=== PATIENT | male | born 1970 | race Caucasian/White ===

== ENCOUNTER 2019-03-20 17:35 | Emergency (ER) | payer SELFPAY ==
[~2019-03-20] VITALS: Ht 182.9 cm; Wt 22.7 kg
[2019-03-20] MEDS ORDERED: ONDANSETRON PF 4 MG/2 ML VIAL. IV ONE (19:45)
[2019-03-20] MEDS ORDERED: fentaNYL PF VIAL 100 MCG/2 ML VIAL IV ONE (19:45)
[2019-03-20] MEDS ORDERED: IV NORMAL SALINE 1000ML BAG 1,000 ML IV ONE (19:45)
[2019-03-20 19:57] LABS: BASO # 0.1 x10^3/uL (0.0-0.2); BASO % 1 % (0-3); EOS # 0.1 x10^3/uL (0.0-0.7); EOS % 1 % (0-3); HEMOGLOBIN 15.8 g/dL (13.0-17.5); LYMPH # 1.6 x10^3/uL (1.0-4.8); LYMPH % 10 % (24-48); MEAN CORPUSCULAR HEMOGLOBIN 29 pg (25-35); MEAN CORPUSCULAR HGB CONC 34 g/dL (31-37); MEAN CORPUSCULAR VOLUME 84 fL (79-100); MONO # 1.8 x10^3/uL (0.0-1.1); MONO % 12 % (0-9); NEUT # 12.3 x10^3/uL (1.8-7.7); NEUT % 77 % (31-73); PLATELET COUNT 256 x10^3/uL (140-400); RED BLOOD COUNT 5.48 x10^6/uL (4.30-5.70); RED CELL DISTRIBUTION WIDTH 13.2 % (11.5-14.5)
[2019-03-20 19:58] LABS: BILIRUBIN,URINE NEGATIVE (NEG); CLARITY,URINE CLEAR; COLOR,URINE YELLOW; NITRITE,URINE NEGATIVE (NEG); PH,URINE 5.5; PROTEIN,URINE NEGATIVE (NEG-TRACE); UROBILINOGEN,URINE 0.2 mg/dL (0.2 mg/dL)
[2019-03-20 20:06] LABS: BACTERIA,URINE MODERATE /HPF (0-FEW); RBC,URINE 0 /HPF (0-2); SQUAMOUS EPITHELIAL CELL,UR MOD /LPF
[2019-03-20 20:07] LABS: HYALINE CASTS, URINE FEW /HPF
[2019-03-20 20:18] LABS: CALCIUM 9.1 mg/dL (8.5-10.1); CREATININE 1.2 mg/dL (0.7-1.3); GFR 64.1; POTASSIUM 4.4 mmol/L (3.5-5.1)
[2019-03-20 20:22] LABS: ALBUMIN/GLOBULIN RATIO 0.9 (1.0-1.7); MAGNESIUM 1.9 mg/dL (1.8-2.4); TOTAL BILIRUBIN 0.8 mg/dL (0.2-1.0); TOTAL PROTEIN 8.3 g/dL (6.4-8.2)
[2019-03-20 20:54] VITALS: BP 126/66
[2019-03-20] MEDS ORDERED: CONTRAST GIVEN. MC PRN (21:15)
[2019-03-20] MEDS ORDERED: IOHEXOL 240 MG/ML 50ML VIAL. PO ONE (21:30)
[2019-03-20] MEDS ORDERED: IOHEXOL 300 MG/ML 100ML VIAL. IV ONE (21:30)
--- NOTE | 2019-03-20 22:01 | RAD ---
PQRS Compliance Statement: One or more of the following individualized dose reduction techniques were utilized for this examination: 1. Automated exposure control 2. Adjustment of the mA and/or kV according to patient size 3. Use of iterative reconstruction technique CT abdomen/pelvis with contrast 03/20/2019 7:37 PM INDICATION: Left lower quadrant abdominal pain, constipation COMPARISON: None available TECHNIQUE: Multiple axial CT images of the abdomen and pelvis were obtained after the intravenous administration of 75 mL Omnipaque 300. Coronal and sagittal reformats are provided. FINDINGS: Lung bases are clear. Heart size is within normal limits. Liver, spleen, bilateral adrenal glands, pancreas and gallbladder are normal in appearance. The abdominal aorta is normal in course and caliber. There are no pathologically enlarged lymph nodes in the abdomen and pelvis. There is no abdominal free fluid. There is no free intraperitoneal air. Trace free fluid is identified within the dependent portion of the pelvis. There is circumferential and eccentric wall thickening involving the sigmoid colon in a region of diverticulosis compatible with diverticulitis. Involved segment measures approximately 4.5 cm. Appendix is normal in appearance. Oral contrast was administered. Opacified small bowel loops since her normal mucosal fold pattern. No evidence for bowel obstruction. The kidneys enhance symmetrically. There is no suspicious renal mass. There is no hydronephrosis. There are no suspected calculi within the kidneys, ureters or urinary bladder. Urinary bladder is within normal limits given degree of distention. Prostate and seminal vesicles appear normal. No suspicious osseous abnormality is identified. IMPRESSION: 1. Short segment diverticulitis involving sigmoid colon without peridiverticular abscess or microperforation. Recommend endoscopic evaluation once acute symptoms have resolved to assess for underlying neoplastic etiology. Electronically signed by: Brisa Rick MD (03/20/2019 9:59 PM) [facility]
--- NOTE | 2019-03-20 22:06 | PHYS DOC ---
Past Medical History Past Medical History: No Pertinent History (INGRID CHEN EVP STRATEGY) Past Surgical History: Other Additional Past Surgical Histo: Right eye sx (INGRID CHEN EVP STRATEGY) Alcohol Use: None Drug Use: None (INGRID CHEN APRN) Adult General Chief Complaint Chief Complaint: GROIN PAIN HPI HPI Patient is a 48 year old male, accompanied by his family, who presents to emergency department with complaints of lower left quadrant abdominal pain for the last 3 days. Patient also complains of constipation for the last 2 days and right lower dental pain for several weeks. Patient states he has only been able to get pea sized bowel movements out for the last 2 days. He denies any rectal bleeding, or diarrhea. He reports concern because the symptoms all started after having [place] food on Tuesday, April 13, 2019. Currently patient rates his pain a 9 out of 10 on the pain scale, there are no alleviating or exacerbating factors. ROS Patient denies any fever, cough, shortness of breath, back pain, dysuria, hematuria, increased urinary frequency, diarrhea, or bloody stools. He complains of nausea at this time and states that he has experienced urgency when needing to urinate. He denies any chest pain or palpitations. All other ROS is neg unless otherwise noted in HPI. (INGRID CHEN APRN) Review of Systems Review of Systems See Above (INGRID CHEN APRN) Current Medications Current Medications Current Medications Medications (Trade) Dose Ordered Sig/Pedrito Start Time Stop Time Status Last Admin Dose Admin Fentanyl Citrate (Fentanyl 2ml Vial) 50 mcg 1X ONCE 03/20/19 19:45 03/20/19 19:46 DC 03/20/19 19:56 50 MCG Info (CONTRAST GIVEN -- Rx MONITORING) 1 each PRN DAILY PRN 03/20/19 21:15 03/21/19 06:54 DC Iohexol (Omnipaque 240 Mg/ml) 50 ml 1X ONCE 03/20/19 21:30 03/20/19 21:31 DC 03/20/19 21:36 30 ML Iohexol (Omnipaque 300 Mg/ml) 100 ml 1X ONCE 03/20/19 21:30 03/20/19 21:31 DC 03/20/19 21:36 75 ML Ondansetron HCl (Zofran) 4 mg 1X ONCE 03/20/19 19:45 03/20/19 19:46 DC 03/20/19 19:56 4 MG Sodium Chloride 1,000 ml @ 1,000 mls/hr 1X ONCE 03/20/19 19:45 03/20/19 20:44 DC 03/20/19 19:56 1,000 MLS/HR (MATT COFFEY DO) Allergies Allergies Allergies Coded Allergies Type Severity Reaction Last Updated Verified No Known Drug Allergies 03/20/19 No (MATT COFFEY DO) Physical Exam Physical Exam See Above Constitutional: Well developed, well nourished, no acute distress, non-toxic appearance obese. [] HENT: Normocephalic, atraumatic, bilateral external ears normal, bilateral TMs normal, oropharynx moist, no oral exudates, nose normal. [] Eyes: PERRLA, conjunctiva normal, no discharge. [] Neck: Normal range of motion, no tenderness, supple, no stridor. [] Cardiovascular:Heart rate regular rhythm, no murmur [] Lungs & Thorax: Bilateral breath sounds clear to auscultation [] Abdomen: Bowel sounds normal, soft, LLQ and RLQ TTP, no rebound tenderness, no guarding, no masses, no pulsatile masses. [] Skin: Warm, dry, no erythema, no rash. [] Back: No tenderness, no CVA tenderness. [] Extremities: No cyanosis, no clubbing, ROM intact, no edema. [] Neurologic: Alert and oriented X 3, no focal deficits noted. [] Psychologic: Affect normal, judgement normal, mood normal. [] (INGRID CHEN APRN) Current Patient Data Vital Signs Vital Signs Date Time Temp Pulse Resp B/P (MAP) Pulse Ox O2 Delivery O2 Flow Rate FiO2 03/20/19 20:54 64 20 126/66 (86) 98 Room Air 03/20/19 19:15 98.1 98.1 (MATT COFFEY DO) Lab Values Laboratory Tests Test 03/20/19 19:20 03/20/19 19:30 Urine Collection Type Void Urine Color Yellow Urine Clarity Clear Urine pH 5.[address] [place] 1.025 Urine Protein Negative mg/dL (NEG-TRACE) Urine Glucose (UA) Negative mg/dL (NEG) Urine Ketones (Stick) Negative mg/dL (NEG) Urine Blood Negative (NEG) Urine Nitrite Negative (NEG) Urine Bilirubin Negative (NEG) Urine Urobilinogen Dipstick 0.2 mg/dL (0.2 mg/dL) Urine Leukocyte Esterase Negative (NEG) Urine RBC 0 /HPF (0-2) Urine WBC 5-10 /HPF (0-4) Urine Squamous Epithelial Cells Mod /LPF Urine Bacteria Moderate /HPF (0-FEW) Urine Hyaline Casts Few /HPF Urine Mucus Mod /LPF White Blood Count 16.0 x10^3/uL (4.0-11.0) H Red Blood Count 5.48 x10^6/uL (4.30-5.70) Hemoglobin 15.8 g/dL (13.0-17.5) Hematocrit 46.0 % (39.0-53.0) Mean Corpuscular Volume 84 fL (79-100) Mean Corpuscular Hemoglobin 29 pg (25-35) Mean Corpuscular Hemoglobin Concent 34 g/dL (31-37) Red Cell Distribution Width 13.2 % (11.5-14.5) Platelet Count 256 x10^3/uL (140-400) Neutrophils (%) (Auto) 77 % (31-73) H Lymphocytes (%) (Auto) 10 % (24-48) L Monocytes (%) (Auto) 12 % (0-9) H Eosinophils (%) (Auto) 1 % (0-3) Basophils (%) (Auto) 1 % (0-3) Neutrophils # (Auto) 12.3 x10^3/uL (1.8-7.7) H Lymphocytes # (Auto) 1.6 x10^3/uL (1.0-4.8) Monocytes # (Auto) 1.8 x10^3/uL (0.0-1.1) H Eosinophils # (Auto) 0.1 x10^3/uL (0.0-0.7) Basophils # (Auto) 0.1 x10^3/uL (0.0-0.2) Sodium Level 139 mmol/L (136-145) Potassium Level 4.4 mmol/L (3.5-5.1) Chloride Level 102 mmol/L (98-107) Carbon Dioxide Level 27 mmol/L (21-32) Anion Gap 10 (6-14) Blood Urea Nitrogen 15 mg/dL (8-26) Creatinine 1.2 mg/dL (0.7-1.3) Estimated GFR (Cockcroft-Gault) 64.1 BUN/Creatinine Ratio 13 (6-20) Glucose Level 77 mg/dL (70-99) Calcium Level 9.1 mg/dL (8.5-10.1) Magnesium Level 1.9 mg/dL (1.8-2.4) Total Bilirubin 0.8 mg/dL (0.2-1.0) Aspartate Amino Transferase (AST) 19 U/L (15-37) Alanine Aminotransferase (ALT) 37 U/L (16-63) Alkaline Phosphatase 85 U/L (46-116) Total Protein 8.3 g/dL (6.4-8.2) H Albumin 4.0 g/dL (3.4-5.0) Albumin/Globulin Ratio 0.9 (1.0-1.7) L Laboratory Tests 03/20/19 19:30 Laboratory Tests 03/20/19 19:30 Microbiology 03/20/19 Urine Culture - Final, Complete 03/20/19 Urine Culture Result 1 (MISSY) - Final, Complete (MATT COFFEY DO) EKG EKG [] (INGRID CHEN APRN) Radiology/Procedures Radiology/Procedures PROCEDURE: CT ABD PELV W/ORAL&IV CONTRAST PQRS Compliance Statement: One or more of the following individualized dose reduction techniques were utilized for this examination: 1. Automated exposure control 2. Adjustment of the mA and/or kV according to patient size 3. Use of iterative reconstruction technique CT abdomen/pelvis with contrast 03/20/2019 7:37 PM INDICATION: Left lower quadrant abdominal pain, constipation COMPARISON: None available TECHNIQUE: Multiple axial CT images of the abdomen and pelvis were obtained after the intravenous administration of 75 mL Omnipaque 300. Coronal and sagittal reformats are provided. FINDINGS: Lung bases are clear. Heart size is within normal limits. Liver, spleen, bilateral adrenal glands, pancreas and gallbladder are normal in appearance. The abdominal aorta is normal in course and caliber. There are no pathologically enlarged lymph nodes in the abdomen and pelvis. There is no abdominal free fluid. There is no free intraperitoneal air. Trace free fluid is identified within the dependent portion of the pelvis. There is circumferential and eccentric wall thickening involving the sigmoid colon in a region of diverticulosis compatible with diverticulitis. Involved segment measures approximately 4.5 cm. Appendix is normal in appearance. Oral contrast was administered. Opacified small bowel loops since her normal mucosal fold pattern. No evidence for bowel obstruction. The kidneys enhance symmetrically. There is no suspicious renal mass. There is no hydronephrosis. There are no suspected calculi within the kidneys, ureters or urinary bladder. Urinary bladder is within normal limits given degree of distention. Prostate and seminal vesicles appear normal. No suspicious osseous abnormality is identified. IMPRESSION: 1. Short segment diverticulitis involving sigmoid colon without peridiverticular abscess or microperforation. Recommend endoscopic evaluation once acute symptoms have resolved to assess for underlying neoplastic etiology.[] (INGRID CHEN EVP STRATEGY) Course & Med Decision Making Course & Med Decision Making Pertinent Labs and Imaging studies reviewed. (See chart for details) dx: diverticulitis, UTI ddx: colitis, kidney stone, appendicitis, bowel obstruction, food poisoning Pt was given 1 L of NS, 4 mg of zofran, and 50 mcg of fentanyl. Pt reports decreased pain after medications. CBC: WBC 16.0 otherwise unremarkable, CMP unremarkable, UA 5-10 wbc, moderate bacteria, moderate squamous cells. Ct abd/pel: Short segment diverticulitis involving sigmoid colon without peridiverticular abscess or microperforation. Recommend endoscopic evaluation once acute symptoms have resolved to assess for underlying neoplastic etiology. Discussed these findings with the patient, who declines admission to the hospital and would like to go home. Advised pt of need for endoscopic evaluation of colon after diverticulitis sx have resolved. Prescriptions written for Flagyl 500 mg PO TID x7 days, Cipro 500 mg BID x7d and Hydrocodone 0.5-1 tab PO q 6 h prn pain #12. Patient verbalized an understanding of home care, medications, follow-up, and return to ED instructions and was in agreement with the plan of care. [] (INGRID CHEN EVP STRATEGY) Dragon Disclaimer Dragon Disclaimer This electronic medical record was generated, in whole or in part, using a voice recognition dictation system. (INGRID CHEN EVP STRATEGY) Departure Departure Impression: Primary Impression: Diverticulitis Additional Impression: UTI (urinary tract infection) Disposition: 01 HOME, SELF-CARE Condition: STABLE Referrals: NO PCP (PCP) Patient Instructions: Diverticulitis, [id number] Additional Instructions: Fill the prescriptions and use as directed. Follow up with a primary care doctor later this week, return to the ER if symptoms worsen. Scripts Hydrocodone Bit/Acetaminophen (HYDROCODONE-APAP 5-325 ) 1 Tab Tablet 0.5-1 TAB PO PRN Q6HRS PRN for PAIN for 3 Days, #12 TAB 0 Refills Prov: INGRID CHEN APRN 03/20/19 Ciprofloxacin Hcl (CIPRO) 500 Mg Tablet 1 TAB PO BID for 7 Days, #14 TAB 0 Refills Prov: INGRID CHEN APRN 03/20/19 Metronidazole (FLAGYL) 500 Mg Tablet 500 MG PO TID for 7 Days, #21 TAB 0 Refills Prov: INGRID CHEN APRN 03/20/19 Attending Signature Attending Signature I have reviewed the PA/QUALITY ASSURANCE NURSE's note and plan of care. I was available for consultation as needed during the patient's visit in the emergency department. I agree with the clinical impression, plan, and disposition. (MATT COFFEY DO) Problem Qualifiers Additional Impression: UTI (urinary tract infection) Urinary tract infection type: acute cystitis Hematuria presence: without hematuria Qualified Codes: N30.00 - Acute cystitis without hematuria INGRID CHEN APRN Mar 20, 2019 22:06 MATT COFFEY DO Mar 26, 2019 15:41
[2019-03-20] MEDS ORDERED: METR500T PO (23:21)
[2019-03-20] MEDS ORDERED: CIPR500T94 PO (23:21)
[2019-03-20] MEDS ORDERED: HYDR-2761 PO (23:21)
== END 2019-03-20 23:25 | disposition home or self-care (01) ==
LOC: ER 17:35
DX: K57.32 Diverticulitis of large intestine without perforation or abscess without bleeding (principal); N30.00 Acute cystitis without hematuria; R11.0 Nausea; K59.00 Constipation, unspecified
CPT/HCPCS: 36415; 74177; 80053; 81001; 83735; 85025; 87086; 96374; 96375; 99285; J2405; J3010; J7030; Q9966; Q9967; 96361

== ENCOUNTER 2019-06-18 17:28 | Emergency (ER) | payer OTHER ==
[~2019-06-18] VITALS: Ht 182.9 cm; Wt 113.4 kg
[~2019-06-18 17:28] MED LIST: CIPR500T94 PO; HYDR-2761 PO; METR500T PO
[2019-06-18] MEDS ORDERED: IV NORMAL SALINE 1000ML BAG 1,000 ML IV SCH (17:36)
--- NOTE | 2019-06-18 17:44 | PHYS DOC ---
Past Medical History Past Medical History: No Pertinent History (CHELSEA BERRIOS MD) Past Surgical History: Other Additional Past Surgical Histo: Right eye sx (CHELSEA BERRIOS MD) Alcohol Use: None Drug Use: None (CHELSEA BERRIOS MD) Adult General Chief Complaint Chief Complaint: TRAUMA ALERT HPI HPI Patient is a 48-year-old male who presents to the emergency department for evaluation. 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 He states that the piano bumped into his right leg, apparently forcefully abducting it, and also from the patient down the stairs. He complains of pain primarily in his lower back, with radiation towards his right groin. He also has some right knee and right elbow pain where he suffered superficial abrasions. His last teta nus is within the past 10 years. He denies any numbness, weakness, incontinence, or bloody urine. He states he was required to provide a urine specimen after the injury for work. He states that the injury occurred at about 1 PM and he stayed on the job to complete the job, but presents to the emergency department for worsening pain. Movement and palpation of the affected areas worsen his pain. There are no alleviating factors to his symptoms. He denies any upper abdominal pain or mid or upper back pain, neck pain or headache pain, and denies any head injury. He denies any chest pain or injury in his upper body. (CHELSEA BERRIOS MD) Review of Systems Review of Systems Constitutional: Denies fever or chills [] Eyes: Denies change in visual acuity, redness, or eye pain [] HENT: Denies nasal congestion or sore throat [] Respiratory: Denies cough or shortness of breath [] Cardiovascular: The patient denies any shortness of breath, chest pain, palpitations, or orthopnea [] GI: Denies abdominal pain, nausea, vomiting, bloody stools or diarrhea [] : Denies dysuria or hematuria [] Musculoskeletal: No additional information not addressed in HPI [] Integument: Denies rash or skin lesions [] Neurologic: Denies headache, focal weakness or sensory changes , denies saddle anesthesia, urinary incontinence or urinary retention.[] Endocrine: Denies polyuria or polydipsia [] All other systems were reviewed and found to be within normal limits, except as documented in this note. (CHELSEA BERRIOS MD) Current Medications Current Medications Current Medications Medications (Trade) Dose Ordered Sig/Pedrito Start Time Stop Time Status Last Admin Dose Admin Hydromorphone HCl (Dilaudid) 1 mg 1X ONCE 06/18/19 19:30 06/18/19 19:31 DC 06/18/19 20:00 1 MG Info (CONTRAST GIVEN -- Rx MONITORING) 1 each PRN DAILY PRN 06/18/19 18:00 06/20/19 17:59 Iohexol (Omnipaque 300 Mg/ml) 75 ml 1X ONCE 06/18/19 18:00 06/18/19 18:01 DC 06/18/19 18:00 75 ML Ondansetron HCl (Zofran Odt) 4 mg STK-MED ONCE 06/18/19 20:26 06/18/19 20:27 DC Ondansetron HCl (Zofran) 4 mg 1X ONCE 06/18/19 17:45 06/18/19 17:46 DC 06/18/19 17:58 4 MG Sodium Chloride 1,000 ml @ 1,000 mls/hr Q1H 06/18/19 17:36 06/18/19 18:35 DC 06/18/19 17:57 1,000 MLS/HR (LIZETT OGDEN MD) Allergies Allergies Allergies Coded Allergies Type Severity Reaction Last Updated Verified No Known Drug Allergies 03/20/19 No (LIZETT OGDEN MD) Physical Exam Physical Exam PHYSICAL EXAM: CONSTITUTIONAL: Well developed, well nourished HEAD: normocephalic, atraumatic EENT: PERRL, EOMI. Conjunctivae normal color, sclerae non-icteric; moist mucous membranes. NECK: Supple, non-tender; no meningismus.There is full, painless range of motion of the cervical spine, without any focal bony midline tenderness to palpation. LUNGS: Lungs CTA, breathing even and unlabored. Normal air movement. HEART: Regular rate and rhythm, no murmur CHEST: No deformity; non-tender ABDOMEN: The abdomen is soft, and non-tender, no masses or bruits. EXTREM: Normal ROM; no deformity, no calf tenderness. Normal pulses palpable in all extremities. There is no pedal edema. There is superficial abrasion on the extensor surface of the right elbow, as well as the anterior/medial aspect of the right knee, without any gross deformity or focal bony tenderness to palpation. The hips and pelvis are nontender, although there is mild tenderness to palpation to the right groin diffusely. SKIN: No rash; no diaphoresis NEURO: Alert; normal speech and cognition; CN's grossly intact; strength grossly intact without focal deficit. There is no Saddle anesthesia, or foot drop. Patellar reflexes are 2+ on the left, 1+ on the right. Distal sensation and per ineal sensation is normal. BACK: No CVA TTP. There is mild diffuse tenderness to palpation of the lumbar spine, most prominently in the mid lumbar spine and right paraspinal muscle area. There is no step-off. The thoracic spine is nontender. (CHELSEA BERRIOS MD) Current Patient Data Vital Signs Vital Signs Date Time Temp Pulse Resp B/P (MAP) Pulse Ox O2 Delivery O2 Flow Rate FiO2 06/18/19 20:02 70 12 106/76 (86) 97 Room Air 06/18/19 17:30 98.8 98.8 (LIZETT OGDEN MD) Lab Values Laboratory Tests Test 06/18/19 17:36 06/18/19 18:36 White Blood Count 15.2 x10^3/uL (4.0-11.0) H Red Blood Count 5.47 x10^6/uL (4.30-5.70) Hemoglobin 15.7 g/dL (13.0-17.5) Hematocrit 46.0 % (39.0-53.0) Mean Corpuscular Volume 84 fL (79-100) Mean Corpuscular Hemoglobin 29 pg (25-35) Mean Corpuscular Hemoglobin Concent 34 g/dL (31-37) Red Cell Distribution Width 13.4 % (11.5-14.5) Platelet Count 251 x10^3/uL (140-400) Neutrophils (%) (Auto) 84 % (31-73) H Lymphocytes (%) (Auto) 8 % (24-48) L Monocytes (%) (Auto) 7 % (0-9) Eosinophils (%) (Auto) 0 % (0-3) Basophils (%) (Auto) 1 % (0-3) Neutrophils # (Auto) 12.8 x10^3/uL (1.8-7.7) H Lymphocytes # (Auto) 1.2 x10^3/uL (1.0-4.8) Monocytes # (Auto) 1.0 x10^3/uL (0.0-1.1) Eosinophils # (Auto) 0.0 x10^3/uL (0.0-0.7) Basophils # (Auto) 0.1 x10^3/uL (0.0-0.2) Segmented Neutrophils % 86 % (35-66) H Lymphocytes % 9 % (24-48) L Monocytes % 5 % (0-10) Toxic Granulation Slight Platelet Estimate Adequate (ADEQUATE) Polychromasia Slight Anisocytosis Slight Sodium Level 142 mmol/L (136-145) Potassium Level 4.6 mmol/L (3.5-5.1) Chloride Level 105 mmol/L (98-107) Carbon Dioxide Level 27 mmol/L (21-32) Anion Gap 10 (6-14) Blood Urea Nitrogen 15 mg/dL (8-26) Creatinine 1.0 mg/dL (0.7-1.3) Estimated GFR (Cockcroft-Gault) 79.1 BUN/Creatinine Ratio 15 (6-20) Glucose Level 100 mg/dL (70-99) H Calcium Level 9.2 mg/dL (8.5-10.1) Total Bilirubin 0.4 mg/dL (0.2-1.0) Aspartate Amino Transferase (AST) 23 U/L (15-37) Alanine Aminotransferase (ALT) 39 U/L (16-63) Alkaline Phosphatase 91 U/L (46-116) Total Protein 8.2 g/dL (6.4-8.2) Albumin 4.2 g/dL (3.4-5.0) Albumin/Globulin Ratio 1.1 (1.0-1.7) Urine Color Yellow Urine Clarity Clear Urine pH 6.0 Urine Specific Oakley 1.025 Urine Protein Negative mg/dL (NEG-TRACE) Urine Glucose (UA) Negative mg/dL (NEG) Urine Ketones (Stick) Negative mg/dL (NEG) Urine Blood Moderate (NEG) Urine Nitrite Negative (NEG) Urine Bilirubin Negative (NEG) Urine Urobilinogen Dipstick 0.2 mg/dL (0.2 mg/dL) Urine Leukocyte Esterase Negative (NEG) Urine RBC 6-10 /HPF (0-2) Urine WBC 1-4 /HPF (0-4) Urine Squamous Epithelial Cells Occ /LPF Urine Bacteria 0 /HPF (0-FEW) Urine Mucus Slight /LPF Laboratory Tests 06/18/19 17:36 Laboratory Tests 06/18/19 17:36 (LIZETT OGDEN MD) EKG EKG [] (CHELSEA BERRIOS MD) Radiology/Procedures Radiology/Procedures [] (CHELSEA BERRIOS MD) Radiology/Procedures [address] [address] IMAGING REPORT Signed PATIENT: DEDRA BUCK ACCOUNT: [id number] : 1970 LOCATION: ER AGE: 48 SEX: M EXAM STATUS: REG ER ORD. PHYSICIAN: CHELSEA BERRIOS MD REASON: trauma PROCEDURE: CHEST AP ONLY Single view chest dated 06/18/2019. No comparison available. Clinical data indication: Pain after injury. FINDINGS: Single upright lateral exam performed. Heart and mediastinal contours are within normal limits. Lungs are clear without focal consolidation. Vascular interstitium within normal limits. No pleural effusion or pneumothorax. IMPRESSION: No acute findings. Electronically signed by: Kilo Duckworth MD (06/18/2019 6:14 PM) [facility] DICTATED and SIGNED BY: KILO DUCKWORTH MD DATE: 06/18/[address] [address] IMAGING REPORT Signed PATIENT: DEDRA BUCK ACCOUNT: [id number] : 1970 LOCATION: ER AGE: 48 SEX: M EXAM STATUS: REG ER ORD. PHYSICIAN: CHELSEA BERRIOS MD REASON: trauma, back pain PROCEDURE: CT CHEST ABD PELVIS W/CONTRAST CT LUMBAR SPINE RECONSTRUCTION, CT CHEST ABD PELVIS W/CONTRAST dated 06/18/2019 6:26 PM Indication: Pain after injury... Comparison: No comparison is available. Technique: Contiguous axial imaging of the chest abdomen pelvis performed with intravenous administration of 75 cc Omnipaque 300. In addition, axial imaging of the lumbar spine performed with thin cut coronal and sagittal reconstruction. One or more of the following individualized dose reduction techniques were utilized for this examination: 1. Automated exposure control 2. Adjustment of the mA and/or kV according to patient size 3. Use of iterative reconstruction technique Findings: Heart size within normal limits. No pericardial effusion. Scattered coronary calcifications. Thoracic aorta normal in caliber. No mediastinal, hilar or axillary lymphadenopathy. Thyroid gland unremarkable. Central airways are patent. Calcified right hilar lymph nodes with a few scattered calcified granuloma in the right lung. No consolidation or pleural effusion. No pneumothorax. Liver, spleen, pancreas, adrenal glands and kidneys are unremarkable. No hydronephrosis. Well-circumscribed low-density focus at the lower pole right kidney, likely cyst or small angiomyolipoma. Unopacified GI tract normal in caliber and contour. No focal bowel wall thickening. No inflammatory stranding in the mesentery. The appendix is normal in caliber. There are a few scattered diverticula within the colon. No ascites or lymphadenopathy. Abdominal aorta normal in caliber. Images of the pelvis show nondistended urinary bladder. Prostate gland upper limits of normal in size. No free fluid or lymphadenopathy. Bone windows show no acute findings. No displaced rib fracture. Reconstructed images of the lumbar spine show normal sagittal alignment. There is slight superior endplate depression of L1 with subtle sclerotic band and mild loss of height. There is also mild loss of height at T11 without discrete fracture line, likely remote. Vertebral body heights are otherwise maintained. Mild endplate hypertrophic changes throughout with moderate lower lumbar facet arthropathy. There is resultant moderate bilateral foraminal stenosis at L5-S1, left greater than right. Multilevel broad-based posterior disc bulging with resultant mild central canal narrowing at L3-L4 and L4-L5. IMPRESSION: 1. Suspected subtle acute superior endplate compression fracture at L1 with mild loss of height. If indicated, MRI to confirm. 2. Otherwise no acute abnormality of chest abdomen or pelvis. 3. Diverticulosis. Electronically signed by: Kilo Duckworth MD (06/18/2019 7:46 PM) [facility] DICTATED and SIGNED BY: KILO DUCKWORTH MD DATE: 06/18/191945 [facility] [address] [place] [address] IMAGING REPORT Signed PATIENT: DEDRA BUCK ACCOUNT: [id number] : 1970 LOCATION: ER AGE: 48 SEX: M EXAM STATUS: REG ER ORD. PHYSICIAN: CHELSEA BERRIOS MD REASON: trauma PROCEDURE: ELBOW RIGHT 3V Three-view right elbow dated 06/18/2019. No comparison available. Clinical data indication: Pain after injury. FINDINGS: 3 views of right elbow show normal bony alignment. No displaced fracture. No acute osseous or articular abnormality. Moderate degenerative change of the elbow joint. No apparent fat pad elevation to suggest joint effusion. IMPRESSION: No acute findings. Electronically signed by: Kilo Duckworth MD (06/18/2019 6:15 PM) [facility] DICTATED and SIGNED BY: KILO DUCKWORTH MD DATE: 06/18/191814 [id number] [place] [address] IMAGING REPORT Signed PATIENT: DEDRA BUCK ACCOUNT: [id number] : 1970 LOCATION: ER AGE: 48 SEX: M EXAM STATUS: REG ER ORD. PHYSICIAN: CHELSEA BERRIOS MD REASON: trauma PROCEDURE: KNEE RIGHT 3V Three-view right knee and single view pelvis and two-view right hip dated 06/18/2019. No comparison available. Clinical data indication: Pain after injury. FINDINGS: 3 views right knee show normal bony alignment. No displaced fracture. Minimal tricompartmental hypertrophic changes. No apparent joint effusion or loose body. No acute osseous or articular abnormality. Single view pelvis and two-view right hip show normal bony alignment. No displaced fracture. No acute osseous or articular abnormality. Mild degenerative change of the right hip joint. IMPRESSION: No acute radiographic abnormality. Mild degenerative changes as described. Electronically signed by: Kilo Duckworth MD (06/18/2019 6:13 PM) [facility] DICTATED and SIGNED BY: KILO DUCKWORTH MD DATE: 06/18/191812 [facility] [address] [place] [address] IMAGING REPORT Signed PATIENT: DEDRA BUCK ACCOUNT: [id number] : 1970 LOCATION: ER AGE: 48 SEX: M EXAM STATUS: REG ER ORD. PHYSICIAN: CHELSEA BERRIOS MD REASON: trauma PROCEDURE: HIP RIGHT 2V WITH PELVIS Three-view right knee and single view pelvis and two-view right hip dated 06/18/2019. No comparison available. Clinical data indication: Pain after injury. FINDINGS: 3 views right knee show normal bony alignment. No displaced fracture. Minimal tricompartmental hypertrophic changes. No apparent joint effusion or loose body. No acute osseous or articular abnormality. Single view pelvis and two-view right hip show normal bony alignment. No displaced fracture. No acute osseous or articular abnormality. Mild degenerative change of the right hip joint. IMPRESSION: No acute radiographic abnormality. Mild degenerative changes as described. Electronically signed by: Kilo Duckworth MD (06/18/2019 6:13 PM) [facility] DICTATED and SIGNED BY: KILO DUCKWORTH MD DATE: 06/18/191812 (LIZETT OGDEN MD) Course & Med Decision Making Course & Med Decision Making 6:00 PM: Patient condition remains stable. Care will be turned over to Dr. Ogden at shift change, pending labs , imaging, and final disposition. Report given. Pertinent Labs and Imaging studies reviewed. (See chart for details) [] (CHELSEA BERRIOS MD) Course & Med Decision Making Evaluation of patient in ER showed 48-year-old female patient with fall from more than 20 stairs and pain in multiple area. X-ray and CT did not show acute finding except for possible compression fracture of L1. Patient ambulated with crutches without problem and wants to go home. Patient was advised to follow-up with work comp physician. (LIZETT OGDEN MD) Dragon Disclaimer Dragon Disclaimer This electronic medical record was generated, in whole or in part, using a voice recognition dictation system. (CHELSEA BERRIOS MD) Departure Departure Impression: Primary Impression: Compression fracture of L1 lumbar vertebra Additional Impressions: Fall down stairs Contusion of right knee Disposition: 01 HOME, SELF-CARE Condition: IMPROVED Referrals: NO PCP (PCP) Patient Instructions: Back, Compression Fracture, Contusion Additional Instructions: Drink plenty of liquids Follow-up with your work compensation physician in 2 or 3 days Return to ER if not getting better Apply ice on the affected area Scripts Ondansetron Hcl (ZOFRAN) 4 Mg Tablet 1 TAB PO PRN Q6-8HRS for nausea, #12 TAB Prov: LIZETT OGDEN MD 06/18/19 Hydrocodone/Apap 5-325 (NORCO 5-325 TABLET) 1 Each Tablet 1 TAB PO PRN Q6HRS PRN for PAIN, #15 TAB 0 Refills Prov: LIZETT OGDEN MD 06/18/19 Cyclobenzaprine Hcl (CYCLOBENZAPRINE HCL) 10 Mg Tablet 1 TAB PO TID, #21 TAB Prov: LIZETT OGDEN MD 06/18/19 Problem Qualifiers Primary Impression: Compression fracture of L1 lumbar vertebra Encounter type: subsequent encounter Fracture healing: with routine healing Qualified Codes: S32.010D - Wedge compression fracture of first lumbar vertebra, subsequent encounter for fracture with routine healing Additional Impressions: Fall down stairs Encounter type: initial encounter Qualified Codes: W10.8XXA - Fall (on) (from) other stairs and steps, initial encounter Contusion of right knee Encounter type: subsequent encounter Qualified Codes: S80.01XD - Contusion of right knee, subsequent encounter CHELSEA BERRIOS MD Jun 18, 2019 17:44 LIZETT OGDEN MD Jun 18, 2019 20:19
[2019-06-18] MEDS ORDERED: ONDANSETRON PF 4 MG/2 ML VIAL. IV ONE (17:45)
[2019-06-18 17:51] LABS: BASO # 0.1 x10^3/uL (0.0-0.2); BASO % 1 % (0-3); EOS % 0 % (0-3); HEMOGLOBIN 15.7 g/dL (13.0-17.5); LYMPH # 1.2 x10^3/uL (1.0-4.8); LYMPH % 8 % (24-48); MEAN CORPUSCULAR HEMOGLOBIN 29 pg (25-35); MEAN CORPUSCULAR HGB CONC 34 g/dL (31-37); MEAN CORPUSCULAR VOLUME 84 fL (79-100); MONO % 7 % (0-9); NEUT # 12.8 x10^3/uL (1.8-7.7); NEUT % 84 % (31-73); PLATELET COUNT 251 x10^3/uL (140-400); RED BLOOD COUNT 5.47 x10^6/uL (4.30-5.70); RED CELL DISTRIBUTION WIDTH 13.4 % (11.5-14.5); WHITE BLOOD COUNT 15.2 x10^3/uL (4.0-11.0)
[2019-06-18] MEDS: HYDROmorphone 2 MG/ML VIAL IV/SQ PRN ×2 (17:59→18:39)
[2019-06-18] MEDS ORDERED: IOHEXOL 300 MG/ML 100ML VIAL. IV ONE (18:00)
[2019-06-18] MEDS ORDERED: CONTRAST GIVEN. MC PRN (18:00)
[2019-06-18 18:06] LABS: CALCIUM 9.2 mg/dL (8.5-10.1); GFR 79.1; POTASSIUM 4.6 mmol/L (3.5-5.1)
[2019-06-18 18:12] LABS: ALBUMIN 4.2 g/dL (3.4-5.0); ALBUMIN/GLOBULIN RATIO 1.1 (1.0-1.7); TOTAL BILIRUBIN 0.4 mg/dL (0.2-1.0); TOTAL PROTEIN 8.2 g/dL (6.4-8.2)
--- NOTE | 2019-06-18 18:16 | RAD ---
Three-view right knee and single view pelvis and two-view right hip dated 06/18/2019. No comparison available. Clinical data indication: Pain after injury. FINDINGS: 3 views right knee show normal bony alignment. No displaced fracture. Minimal tricompartmental hypertrophic changes. No apparent joint effusion or loose body. No acute osseous or articular abnormality. Single view pelvis and two-view right hip show normal bony alignment. No displaced fracture. No acute osseous or articular abnormality. Mild degenerative change of the right hip joint. IMPRESSION: No acute radiographic abnormality. Mild degenerative changes as described. Electronically signed by: Kilo Duckworth MD (06/18/2019 6:13 PM) [facility]
--- NOTE | 2019-06-18 18:17 | RAD ---
Three-view right elbow dated 06/18/2019. No comparison available. Clinical data indication: Pain after injury. FINDINGS: 3 views of right elbow show normal bony alignment. No displaced fracture. No acute osseous or articular abnormality. Moderate degenerative change of the elbow joint. No apparent fat pad elevation to suggest joint effusion. IMPRESSION: No acute findings. Electronically signed by: Kilo Duckworth MD (06/18/2019 6:15 PM) [facility]
--- NOTE | 2019-06-18 18:17 | RAD ---
Single view chest dated 06/18/2019. No comparison available. Clinical data indication: Pain after injury. FINDINGS: Single upright lateral exam performed. Heart and mediastinal contours are within normal limits. Lungs are clear without focal consolidation. Vascular interstitium within normal limits. No pleural effusion or pneumothorax. IMPRESSION: No acute findings. Electronically signed by: Kilo Duckworth MD (06/18/2019 6:14 PM) [facility]
[2019-06-18 18:49] LABS: BILIRUBIN,URINE NEGATIVE (NEG); CLARITY,URINE CLEAR; COLOR,URINE YELLOW; NITRITE,URINE NEGATIVE (NEG); PROTEIN,URINE NEGATIVE (NEG-TRACE); UROBILINOGEN,URINE 0.2 mg/dL (0.2 mg/dL)
[2019-06-18 18:57] LABS: BACTERIA,URINE 0 /HPF (0-FEW); SQUAMOUS EPITHELIAL CELL,UR OCC /LPF
[2019-06-18] MEDS ORDERED: HYDROmorphone 2 MG/ML VIAL IV ONE (19:30)
--- NOTE | 2019-06-18 19:49 | RAD ---
CT LUMBAR SPINE RECONSTRUCTION, CT CHEST ABD PELVIS W/CONTRAST dated 06/18/2019 6:26 PM Indication: Pain after injury... Comparison: No comparison is available. Technique: Contiguous axial imaging of the chest abdomen pelvis performed with intravenous administration of 75 cc Omnipaque 300. In addition, axial imaging of the lumbar spine performed with thin cut coronal and sagittal reconstruction. One or more of the following individualized dose reduction techniques were utilized for this examination: 1. Automated exposure control 2. Adjustment of the mA and/or kV according to patient size 3. Use of iterative reconstruction technique Findings: Heart size within normal limits. No pericardial effusion. Scattered coronary calcifications. Thoracic aorta normal in caliber. No mediastinal, hilar or axillary lymphadenopathy. Thyroid gland unremarkable. Central airways are patent. Calcified right hilar lymph nodes with a few scattered calcified granuloma in the right lung. No consolidation or pleural effusion. No pneumothorax. Liver, spleen, pancreas, adrenal glands and kidneys are unremarkable. No hydronephrosis. Well-circumscribed low-density focus at the lower pole right kidney, likely cyst or small angiomyolipoma. Unopacified GI tract normal in caliber and contour. No focal bowel wall thickening. No inflammatory stranding in the mesentery. The appendix is normal in caliber. There are a few scattered diverticula within the colon. No ascites or lymphadenopathy. Abdominal aorta normal in caliber. Images of the pelvis show nondistended urinary bladder. Prostate gland upper limits of normal in size. No free fluid or lymphadenopathy. Bone windows show no acute findings. No displaced rib fracture. Reconstructed images of the lumbar spine show normal sagittal alignment. There is slight superior endplate depression of L1 with subtle sclerotic band and mild loss of height. There is also mild loss of height at T11 without discrete fracture line, likely remote. Vertebral body heights are otherwise maintained. Mild endplate hypertrophic changes throughout with moderate lower lumbar facet arthropathy. There is resultant moderate bilateral foraminal stenosis at L5-S1, left greater than right. Multilevel broad-based posterior disc bulging with resultant mild central canal narrowing at L3-L4 and L4-L5. IMPRESSION: 1. Suspected subtle acute superior endplate compression fracture at L1 with mild loss of height. If indicated, MRI to confirm. 2. Otherwise no acute abnormality of chest abdomen or pelvis. 3. Diverticulosis. Electronically signed by: Kilo Duckworth MD (06/18/2019 7:46 PM) [facility]
[2019-06-18 20:02] VITALS: BP 106/76
[2019-06-18 20:09] LABS: % LYMPHS 9 % (24-48); % MONOS 5 % (0-10); % SEGS 86 % (35-66)
[2019-06-18 20:10] LABS: ANISOCYTOSIS SLIGHT; PLT ESTIMATE ADEQUATE (ADEQUATE); POLYCHROMASIA SLIGHT; TOXIC GRANULATION SLIGHT
[2019-06-18] MEDS ORDERED: HYDR-3164 PO (20:19)
[2019-06-18] MEDS ORDERED: CYCL10TA2 PO (20:19)
[2019-06-18] MEDS ORDERED: ONDANSETRON ODT 4 MG TAB.RAPDIS. ONE (20:26)
[2019-06-18] MEDS ORDERED: ONDA4TAB7 PO (20:28)
[2019-06-18] MEDS ORDERED: ONDANSETRON ODT 4 MG TAB.RAPDIS. PO ONE (20:30)
== END 2019-06-18 20:34 | disposition home or self-care (01) ==
LOC: ER 17:28
DX: S32.010A Wedge compression fracture of first lumbar vertebra, initial encounter for closed fracture (principal); S80.01XA Contusion of right knee, initial encounter; S50.311A Abrasion of right elbow, initial encounter; W10.8XXA Fall (on) (from) other stairs and steps, initial encounter; Y93.89 Activity, other specified; Y92.89 Other specified places as the place of occurrence of the external cause; Y99.0 Civilian activity done for income or pay
CPT/HCPCS: 36415; 71045; 71260; 73080; 73502; 73562; 74177; 80053; 81001; 85007; 85025; 96374; 96375; 96376; 99285; J1170; J2405; J7030; Q0162; Q9967

== ENCOUNTER 2020-02-10 20:54 | Emergency (ER) | payer SELFPAY ==
[~2020-02-10] VITALS: Ht 182.9 cm; Wt 115.0 kg
[~2020-02-10 20:54] MED LIST changes: +CYCL10TA2 PO; +HYDR-3164 PO; +ONDA4TAB7 PO
[2020-02-10 21:07] VITALS: BP 162/93
[2020-02-10] MEDS ORDERED: HYDROcodone/APAP 5/325MG 1 TAB TABLET PO ONE (21:15)
--- NOTE | 2020-02-10 21:48 | RAD ---
Exam: Left foot 3 views. Left ankle 3 views INDICATION: Pain TECHNIQUE: Frontal, lateral and oblique views of the left ankle and foot. Comparisons: None FINDINGS: Ankle: Bone mineralization is normal. No acute or healed fractures. Soft tissues are unremarkable. Joint spaces are well-maintained. Foot: Bone mineralization is normal. No acute or healed fractures. Soft tissues are unremarkable. Joint spaces are well-maintained. IMPRESSION: No acute osseous abnormality of the left ankle or left foot. Electronically signed by: Jm Barr MD (02/10/2020 9:45 PM) [id number]
[2020-02-10] MEDS ORDERED: IBUP-1007 PO (22:01)
[2020-02-10] MEDS ORDERED: HYDR-3164 PO (22:01)
--- NOTE | 2020-02-10 22:02 | PHYS DOC ---
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 He states they wrapped it and he continued working on it for the rest of the day. This happened at 12:30 PM today. He states he took 800 mg of Motrin at 1530 today. Patient states the pain is mostly in the lateral left foot and in the lateral left ankle. He denies any radiation of the pain. Patient denies numbness or tingling, coolness of the extremity, color change of the extremity. Patient rates his pain 8 out of 10 and states it is a dull throbbing pain. Review of Systems: Review of Systems: Constitutional: Denies fever or chills. [] Eyes: Denies change in visual acuity. [] HENT: Denies nasal congestion or sore throat. [] Respiratory: Denies cough or shortness of breath. [] Cardiovascular: Denies chest pain or edema. [] GI: Denies abdominal pain, nausea, vomiting, bloody stools or diarrhea. [] : Denies dysuria. [] Musculoskeletal: Denies back pain. Left ankle and foot joint pain. [] Integument: Denies rash. [] Neurologic: Denies headache, focal weakness or sensory changes. [] Endocrine: Denies polyuria or polydipsia. [] Lymphatic: Denies swollen glands. [] Psychiatric: Denies depression or anxiety. [] Heart Score: Risk Factors: Risk Factors: DM, Current or recent (<one month) smoker, HTN, HLP, family history of CAD, obesity. Risk Scores: Score 0 - 3: 2.5% MACE over next 6 weeks - Discharge Home Score 4 - 6: 20.3% MACE over next 6 weeks - Admit for Clinical Observation Score 7 - 10: 72.7% MACE over next 6 weeks - Early Invasive Strategies Current Medications: Current Medications Medications (Trade) Dose Ordered Sig/Pedrito Start Time Stop Time Status Last Admin Dose Admin Acetaminophen/ Hydrocodone Bitart (Lortab 5/325) 1 tab 1X ONCE 02/10/20 21:15 02/10/20 21:16 DC 02/10/20 21:31 1 TAB Allergies: Allergies: Allergies Coded Allergies Type Severity Reaction Last Updated Verified No Known Drug Allergies 03/20/19 No Physical Exam: PE: Constitutional: Well developed, well nourished, no acute distress, non-toxic appearance. [] HENT: Normocephalic, atraumatic, bilateral external ears normal, oropharynx moist, no oral exudates, nose normal. [] Eyes: PERRLA, EOMI, conjunctiva normal, no discharge. [] Neck: Normal range of motion, no tenderness, supple, no stridor. [] Cardiovascular:Heart rate regular rhythm, no murmur [] Lungs & Thorax: Bilateral breath sounds clear to auscultation [] Abdomen: Bowel sounds normal, soft, no tenderness, no masses, no pulsatile masses. [] Skin: Warm, dry, no erythema, no rash. Left lateral foot bruising.] Back: No tenderness, no CVA tenderness. [] Extremities: No tenderness, no cyanosis, no clubbing, ROM intact, left lateral foot and ankle 1+ edema. [] Neurologic: Alert and oriented X 3, normal motor function, normal sensory function, no focal deficits noted. [] Psychologic: Affect normal, judgement normal, mood normal. [] Current Patient Data: Vital Signs: Vital Signs Date Time Temp Pulse Resp B/P (MAP) Pulse Ox O2 Delivery O2 Flow Rate FiO2 02/10/20 21:31 14 96 02/10/20 21:07 98.0 63 162/93 (116) Room Air 98.0 EKG: EKG: [] Radiology/Procedures: Radiology/Procedures: [] Impression: [facility] [address] [place] [address] IMAGING REPORT Signed PATIENT: DEDRA BUCK ACCOUNT: [id number] : 1970 LOCATION: ER AGE: 49 SEX: M EXAM STATUS: REG ER ORD. PHYSICIAN: GRACE ALFARO APRN REASON: pain PROCEDURE: FOOT LEFT 3V Exam: Left foot 3 views. Left ankle 3 views INDICATION: Pain TECHNIQUE: Frontal, lateral and oblique views of the left ankle and foot. Comparisons: None FINDINGS: Ankle: Bone mineralization is normal. No acute or healed fractures. Soft tissues are unremarkable. Joint spaces are well-maintained. Foot: Bone mineralization is normal. No acute or healed fractures. Soft tissues are unremarkable. Joint spaces are well-maintained. IMPRESSION: No acute osseous abnormality of the left ankle or left foot. Electronically signed by: Jm Thomason MD (02/10/2020 9:45 PM) [id number] DICTATED and SIGNED BY: JM THOMASON MD DATE: 02/10/202144 Course & Med Decision Making: Course & Med Decision Making Pertinent Labs and Imaging studies reviewed. (See chart for details) Alert and oriented. Speaks in full clear sentences. Skin pink warm dry. No tenderness to the left foot or ankle. Patient does have 1+ swelling to the left lateral foot and lateral ankle. There is bruising to the left lateral foot. Patient can wiggle all toes and has full range of motion of his ankle. When patient rotates ankle inward it is painful. Pedal pulses strong present. No joint laxity or deformity. Refill less than 3 seconds. X-ray shows no acute findings. Patient will be placed in a cam boot. Patient to follow-up with Dr. Melara. [] Maggy Disclaimer: Maggy Disclaimer: This electronic medical record was generated, in whole or in part, using a voice recognition dictation system. Departure Departure Impression: Primary Impression: Foot pain, left Additional Impression: Ankle pain, left Qualified Codes: M25.572 - Pain in left ankle and joints of left foot Disposition: HOME, SELF-CARE Condition: STABLE Referrals: NO PCP (PCP) ABDIRIZAK MELARA MD Patient Instructions: Ankle Sprain, Foot Sprain Additional Instructions: Follow-up with your primary care physician or the orthopedic I have referred you to. Wear the boot until after you follow-up with orthopedic. Use ice and elevation to help with pain. Take Medications as prescribed. Scripts Ibuprofen (IBUPROFEN) 600 Mg Tablet 600 MG PO PRN Q6HRS PRN for INFLAMMATION, #20 TAB Prov: GRACE ALFARO [facility] 02/10/20 Hydrocodone/Apap 5-325 (NORCO 5-325 TABLET) 1 Each Tablet 1 TAB PO PRN Q6HRS PRN for PAIN, #10 TAB 0 Refills Prov: GRACE ALFARO APRN 02/10/20 Justicifation of Admission Dx: Justifications for Admission: Justification of Admission Dx: N/A GRACE ALFARO APRN Feb 10, 2020 22:02
== END 2020-02-10 22:44 | disposition home or self-care (01) ==
LOC: ER 20:54
DX: S90.32XA Contusion of left foot, initial encounter (principal); M25.572 Pain in left ankle and joints of left foot; Z98.890 Other specified postprocedural states; W19.XXXA Unspecified fall, initial encounter; Y93.39 Activity, other involving climbing, rappelling and jumping off; Y92.89 Other specified places as the place of occurrence of the external cause; Y99.0 Civilian activity done for income or pay
CPT/HCPCS: 73610; 73630; 99284